=== PATIENT | female | born 1930 | race Two or more races ===

== ENCOUNTER → 2019-11-28 | Outpatient (CLI) | payer MEDICAID ==
[2019-11-28 10:56] LABS: Basophils # (auto) 0.1 10 ^3/uL (0-0.2); Basophils % (auto) 0.9 % (0.0-2.0); Eosinophils # (auto) 0.1 10 ^3/uL (0-0.8); Eosinophils % (auto) 2.4 % (0.0-7.0); Hemoglobin 13.1 g/dL (12.2-16.2); Lymphocytes # (auto) 2.2 10 ^3/uL (0.4-5.4); Lymphocytes % (auto) 37.5 % (10.0-50.0); Mean Corpuscular Hemoglobin 28.2 pg (28.0-32.0); Mean Corpuscular Hgb Conc. 32.8 g/dL (32.0-36.0); Mean Corpuscular Volume 85.9 fL (80.0-100.0); Monocytes # (auto) 0.5 10 ^3/uL (0-1.3); Monocytes % (auto) 8.1 % (0.0-12.0); Neutrophils % (auto) 51.1 % (37.0-80.0); Nucleated Red Blood Cells % 0.1 %; Platelet Count (auto) 169 10^3/uL (140-450); Red Blood Cells 4.66 10^6/uL (4.0-5.20); Red Cell Distribution Width 14.8 % (11.8-14.3); White Blood Cell 5.8 10^3/uL (4.4-10.8)
[2019-11-28 11:03] LABS: Urine Bacteria MOD /hpf (None Seen); Urine Blood TRACE /uL (Negative); Urine Mucus FEW (None Seen); Urine Specific Gravity 1.017 (1.001-1.035); Urine WBC 354 /hpf (0 - 5); Urine WBC Clumps PRESENT /hpf (None Seen)
[2019-11-28 11:33] LABS: Albumin 3.6 g/dL (3.4-5.0); BUN/Creatinine Ratio 34.2; Calcium 8.5 mg/dL (8.5-10.1)
[2019-11-28 11:37] LABS: Bilirubin, Total 0.4 mg/dL (0.2-1.0); Total Protein 6.9 g/dL (6.4-8.2)
[2019-11-29 06:07] LABS: RPR Non Reactive (Non Reactive)
[2019-11-30 10:13] LABS: Free T4 (Free Thyroxine) 0.72 ng/dL (0.89-1.76)
[2019-11-30 10:14] LABS: Folate (Folic Acid) 4.9 ng/mL (5.38-24)
== END | disposition home or self-care (01) ==
LOC: LAB 10:22
PROVIDERS: ATTEND Internal Medicine
DX: I10 Essential (primary) hypertension (principal); F03.90 Unspecified dementia, unspecified severity, without behavioral disturbance, psychotic disturbance, mood disturbance, and anxiety; Z78.9 Other specified health status
CPT/HCPCS: 36415; 80053; 80061; 81001; 82306; 82607; 82746; 83036; 84439; 84443; 85025; 86592

== ENCOUNTER 2020-11-10 18:53 | Inpatient (IN) | payer MEDICAID ==
[~2020-11-10] VITALS: Ht 139.7 cm; Wt 38.2 kg
[2020-11-10 20:31] LABS: Eosinophils # (auto) 0.1 10 ^3/uL (0-0.8); Monocytes # (auto) 0.5 10 ^3/uL (0-1.3); Neutrophils # (auto) 6.2 10 ^3/uL (1.6-8.6)
[2020-11-10 20:32] LABS: Basophils # (auto) 0.1 10 ^3/uL (0-0.2); Basophils % (auto) 0.6 % (0.0-2.0); Eosinophils % (auto) 0.7 % (0.0-7.0); Hematocrit 44.1 % (36.0-46.0); Hemoglobin 14.6 g/dL (12.2-16.2); Lymphocytes # (auto) 1.9 10 ^3/uL (0.4-5.4); Lymphocytes % (auto) 22.2 % (10.0-50.0); Mean Corpuscular Hemoglobin 27.3 pg (28.0-32.0); Mean Corpuscular Hgb Conc. 33.1 g/dL (32.0-36.0); Mean Corpuscular Volume 82.5 fL (80.0-100.0); Monocytes % (auto) 6.2 % (0.0-12.0); Neutrophils % (auto) 70.3 % (37.0-80.0); Nucleated Red Blood Cells % 0.1 %; Red Blood Cells 5.34 10^6/uL (4.0-5.20); Red Cell Distribution Width 15.9 % (11.8-14.3); White Blood Cell 8.8 10^3/uL (4.4-10.8)
[2020-11-10 20:47] LABS: INR 1.05 (0.9-1.15); Partial Thromboplastin Time 26.2 sec (23.6-33.0)
[2020-11-10 20:49] LABS: Alanine Aminotransferase 15 U/L (13-56); Albumin 3.5 g/dL (3.4-5.0); Anion Gap 8 (5-15); Aspartate Aminotransferase 17 U/L (15-37); BUN/Creatinine Ratio 32.9; Blood Urea Nitrogen 23 mg/dL (7-18); Calcium 8.4 mg/dL (8.5-10.1); Carbon Dioxide 28 mmol/L (21-32); Chloride 105 mmol/L (98-107); GFR African American 102 mL/min; GFR Non-African American 84 mL/min; Glucose 144 mg/dL (74-106); Lipase 125 U/L (73-393); Potassium 3.6 mmol/L (3.5-5.1); Sodium 141 mmol/L (136-145)
[2020-11-10 20:54] LABS: Alkaline Phosphatase 103 U/L (45-117); Bilirubin, Total 0.5 mg/dL (0.2-1.0); Total Protein 7.4 g/dL (6.4-8.2)
[2020-11-10] MEDS ORDERED: ASPirin 325 MG TAB PO ONE (21:30)
[2020-11-10] MEDS ORDERED: hydrALAZINE HCL 20 MG/ML VL IV PRN (21:45)
[2020-11-10] MEDS ORDERED: ONDANSETRON HCL 4 MG/2 ML VIAL IV PRN (21:45)
[2020-11-10] MEDS ORDERED: NITROGLYCERIN 0.4 MG SL TAB SL PRN (21:45)
[2020-11-10] MEDS ORDERED: MORPHINE SULFATE INJECTION 2 MG/ML SYRG IV PRN (21:45)
[2020-11-10] MEDS: D5W/SOD CHL 0.45% 1,000 ML IV SCH (23:05)
[2020-11-11 01:03] LABS: Urine Bacteria FEW /hpf (None Seen); Urine Blood Negative /uL (Negative); Urine Specific Gravity 1.014 (1.001-1.035); Urine WBC 42 /hpf (0 - 5); Urine WBC Clumps PRESENT /hpf (None Seen)
[2020-11-11] MEDS ORDERED: AMLO-489 PO (08:31)
[2020-11-11] MEDS ORDERED: FOLI1TAB6 PO (08:31)
[2020-11-11 09:00] VITALS: BP 121/54
[2020-11-11] MEDS ORDERED: LORazepam 2MG/ML-1ML VIAL IV ONE (09:30)
[2020-11-11] MEDS ORDERED: levoFLOXacin 500MG 100 ML IV ONE (10:00)
[2020-11-11 13:00] VITALS: BP 149/57
[2020-11-11] MEDS: D5W/SOD CHL 0.45% 1,000 ML IV SCH (14:25)
[2020-11-11 16:02] LABS: Folate (Folic Acid) > 24.00 ng/mL (5.38-24)
[2020-11-11 17:00] VITALS: BP 143/59
[2020-11-11 22:00] VITALS: BP 142/58
[2020-11-12 05:00] VITALS: BP 139/63
[2020-11-12] MEDS: D5W/SOD CHL 0.45% 1,000 ML IV SCH ×2 (06:45→23:45)
[2020-11-12 07:34] LABS: Basophils # (auto) 0.1 10 ^3/uL (0-0.2); Basophils % (auto) 0.8 % (0.0-2.0); Eosinophils # (auto) 0.1 10 ^3/uL (0-0.8); Eosinophils % (auto) 1.2 % (0.0-7.0); Hemoglobin 12.9 g/dL (12.2-16.2); Lymphocytes % (auto) 39.6 % (10.0-50.0); Mean Corpuscular Hemoglobin 27.7 pg (28.0-32.0); Mean Corpuscular Hgb Conc. 33.1 g/dL (32.0-36.0); Mean Corpuscular Volume 83.7 fL (80.0-100.0); Monocytes # (auto) 0.5 10 ^3/uL (0-1.3); Monocytes % (auto) 6.5 % (0.0-12.0); Neutrophils % (auto) 51.9 % (37.0-80.0); Nucleated Red Blood Cells % 0.1 %; Red Blood Cells 4.66 10^6/uL (4.0-5.20); Red Cell Distribution Width 15.7 % (11.8-14.3); White Blood Cell 7.6 10^3/uL (4.4-10.8)
[2020-11-12 07:48] LABS: Calcium 8.3 mg/dL (8.5-10.1); Potassium 3.7 mmol/L (3.5-5.1)
[2020-11-12] MEDS: levoFLOXacin 250MG 50 ML IV SCH (08:53)
[2020-11-12 22:00] VITALS: BP 144/72
[2020-11-13 04:46] VITALS: BP 130/70
[2020-11-13] MEDS: levoFLOXacin 250MG 50 ML IV SCH (09:41)
[2020-11-13] MEDS ORDERED: CIPR500T4 PO (10:38)
== END 2020-11-13 12:31 | disposition home or self-care (01) | DRG 463 ==
LOC: ER 18:53 → TELE 21:34 → TELE-WESTW 11-11 04:05
PROVIDERS: ADMIT Hospitalist; ATTEND Hospitalist
DX: N39.0 Urinary tract infection, site not specified (principal); G93.41 Metabolic encephalopathy; G30.9 Alzheimer's disease, unspecified; F02.80 Dementia in other diseases classified elsewhere, unspecified severity, without behavioral disturbance, psychotic disturbance, mood disturbance, and anxiety; I10 Essential (primary) hypertension; R51.9 Headache, unspecified; M21.371 Foot drop, right foot; Z20.822 Contact with and (suspected) exposure to COVID-19; Z82.49 Family history of ischemic heart disease and other diseases of the circulatory system; Z88.0 Allergy status to penicillin
CPT/HCPCS: 36415; 51702; 70450; 70551; 71045; 80048; 80053; 81001; 81025; 82607; 82746; 83605; 83690; 84443; 84484; 85025; 85610; 85730; 87086; 87088; 87186; 87426; 92610; 95819; 97110; 97116; 97530; G0378; J1956

== ENCOUNTER → 2021-03-13 | Outpatient (CLI) | payer MEDICAID ==
[~2021-03-13] MED LIST: AMLO-489 PO; CIPR500T4 PO; FOLI1TAB6 PO
== END | disposition home or self-care (01) ==
LOC: LAB 10:45
PROVIDERS: ATTEND Internal Medicine
DX: E03.9 Hypothyroidism, unspecified (principal)
CPT/HCPCS: 36415; 84439; 84443

== ENCOUNTER → 2021-09-01 | Emergency (ER) | payer MEDICAID ==
[~2021-09-01] VITALS: Ht 152.4 cm; Wt 52.2 kg
[2021-09-01 15:33] VITALS: BP 105/57
== END | disposition left against medical advice (07) ==
LOC: ER 15:23
DX: S01.81XD Laceration without foreign body of other part of head, subsequent encounter (principal); W18.00XD Striking against unspecified object with subsequent fall, subsequent encounter